=== PATIENT | female | born 1950 | race Caucasian/White ===

== ENCOUNTER 2021-01-11 10:14 | Outpatient (CLI) | payer MEDICARE | END 2021-01-11 10:15 | disposition home or self-care (01) | LOC: CSHMAMMO 10:14 | PROVIDERS: ATTEND Family Medicine | DX: Z12.31 Encounter for screening mammogram for malignant neoplasm of breast (principal); M85.859 Other specified disorders of bone density and structure, unspecified thigh; M81.0 Age-related osteoporosis without current pathological fracture | CPT/HCPCS: 77063; 77067; 77080 ==

== ENCOUNTER 2021-01-25 09:24 | Outpatient (CLI) | payer MEDICARE | END 2021-01-25 09:25 | disposition home or self-care (01) | LOC: CSHRAD 09:24 | PROVIDERS: ATTEND Family Medicine | DX: M25.552 Pain in left hip (principal); M54.5 Low back pain; G89.29 Other chronic pain; R29.898 Other symptoms and signs involving the musculoskeletal system; M47.816 Spondylosis without myelopathy or radiculopathy, lumbar region; N20.0 Calculus of kidney | CPT/HCPCS: 72100 ==

== ENCOUNTER 2023-01-19 10:12 | Outpatient (CLI) | payer MEDICARE | END 2023-01-19 10:13 | disposition home or self-care (01) | LOC: CSHMAMMO 10:12 | PROVIDERS: ATTEND Family Medicine | DX: Z12.31 Encounter for screening mammogram for malignant neoplasm of breast (principal) | CPT/HCPCS: 77063; 77067 ==

== ENCOUNTER 2024-01-21 08:34 | Outpatient (CLI) | payer MEDICARE | END 2024-01-21 08:35 | disposition home or self-care (01) | LOC: CSHMAMMO 08:34 | PROVIDERS: ATTEND Family Medicine | DX: Z12.31 Encounter for screening mammogram for malignant neoplasm of breast (principal) | CPT/HCPCS: 77063; 77067 ==